=== PATIENT | female | born 1990 | race Caucasian/White ===

== ENCOUNTER 2017-01-06 14:03 | Emergency (ER) | payer OTHER ==
[2017-01-06 14:11] VITALS: TEMP 97.9
[2017-01-06] MEDS ORDERED: TDAP ADULT 0.5 ML INJ (BOOSTRIX) IM ONE (15:31)
--- NOTE | 2017-01-06 16:22 | EDPHY ---
H & P Time Seen by Provider: 01/06/17 14:33 HPI/ROS: CHIEF COMPLAINT: Laceration right knee HISTORY OF PRESENT ILLNESS: 26-year-old female presents to the emergency department with injury to the right knee. The patient was on a rope swing and was doing a back flip and somehow hit her right knee on a rock. The incident happened just prior to arrival. She was able to ambulate. She complains of isolated pain to the right knee. Denies any other trauma or injury. ROS: Denies numbness or tingling in her toes, pain in her right ankle or calf. 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 No active bleeding noted. She is able to fully extend her right knee. Patellar tendon is intact. She has limited flexion secondary to pain. Her right calf is nontender. Her right distal thigh is nontender. She has an abrasion noted to the lateral aspect of the left ankle. Full range of motion of the left ankle. Constitutional: Initial Vital Signs Temperature (C) 36.6 C 01/06/17 14:08 Heart Rate 71 01/06/17 14:08 Respiratory Rate 16 01/06/17 14:08 Blood Pressure 126/78 H 01/06/17 14:08 O2 Sat (%) 100 01/06/17 14:08 O2 Delivery Mode Room Air Allergies/Adverse Reactions: Penicillins Allergy (Verified 01/06/17 14:10) Home Medications: Medication Instructions Recorded Cephalexin [Keflex] 500 mg PO QID #28 cap 01/06/17 Singulair 01/06/17 MDM/Departure - MDM Imaging Results: Imaging Impressions Knee X-Ray 01/06/17 14:53 Impression: Nondisplaced inferior patellar avulsion fracture. Findings and recommendations discussed with Emergency Department physician, Eileen Yu PA-C at 1527 hour, 01/06/2017. Final report concurs with initial preliminary interpretation. Imaging: Discussed imaging studies w/ ged teacher Radiologist, I viewed and interpreted images myself Procedures: Laceration repair. Verbal consent was obtained from the patient. The 4 cm laceration on the right anterior knee was anesthetized using 1% lidocaine with epinephrine. The wound was irrigated with saline, draped and explored to its base with a gloved finger. No evidence of retained foreign body. Bursa appears intact. No tendon injury was identified. The wound was repaired with 4 0 Vicryl, 4 sutures and 4 0 Ethilon, 8 sutures. The wound repair was complex. The procedure was performed by myself. Medications Given: Discontinued Medications Diphtheria/Tetanus/Acell Pertussis (Boostrix) 0.5 ml IM .ONCE ONE Stop: 01/06/17 15:32 Last Admin: 01/06/17 16:01 Dose: 0.5 ml ED Course/Re-evaluation: 26-year-old female presents to the emergency department with laceration to her right knee. X-rays obtained and revealed patellar fracture to the lower pole of the right patella. I spoke with Dr. Dwayne Mueller who was on-call for Orthopedics who reviewed the patient's films. He recommended closing her skin. He did not recommend knee immobilizer left the patient was unable to ambulate. He also did not recommend crutches. Agreed with Keflex to prevent infection. He recommended follow up with orthopedic surgery in 1 week to recheck. This was discussed with the patient who verbalized understanding and agreed. Patient's tetanus shot was updated. - Depart Disposition: Home, Routine, Self-Care Clinical Impression: Laceration of right knee Qualifiers: Encounter type: initial encounter Qualified Code(s): S81.011A - Laceration without foreign body, right knee, initial encounter Patellar fracture Qualifiers: Encounter type: initial encounter Fracture type: open Open fracture type: open type I or II Fracture morphology: unspecified fracture morphology Laterality: right Qualified Code(s): S82.001B - Unspecified fracture of right patella, initial encounter for open fracture type I or II Condition: Good Instructions: Care For Your Stitches (ED), Laceration (ED), Patellar Fracture ( ED) Additional Instructions: Wound Care Follow-Up: Removal of sutures in 10 days. Suture removal is complimentary in uncomplicated cases. Infection or abnormal findings would require reevaluation by the MD. In that case, you may be billed. Keflex 500 mg 4 times daily for 1 week to prevent infection. Limited flexion of your right knee. Follow up with orthopedic surgeon in 1 week to recheck. Do not go in any kind of open water until the wound has completely healed and the sutures have been removed and has been cleared by Orthopedic surgery. Ibuprofen 600 mg every 8 hours as needed for pain. Your given a tetanus shot today in the emergency department. Please document this for your records. Prescriptions: Cephalexin [Keflex] 500 mg PO QID #28 cap Referrals: Dwayne Mueller MD [Medical Doctor] - 5-7 days, call for appt. (Orthopedic surgeon on-call)
[2017-01-06 17:03] VITALS: BP 122/80; PULSE 72; RESP 14; O2SAT 98
== END 2017-01-06 17:02 | disposition home or self-care (01) ==
PROC: 0HQKXZZ Repair Right Lower Leg Skin, External Approach (ICD-10-PCS; principal; 2017-01-06)
DX: S82.001A Unspecified fracture of right patella, initial encounter for closed fracture (principal); J45.909 Unspecified asthma, uncomplicated; W22.8XXA Striking against or struck by other objects, initial encounter; Y93.89 Activity, other specified